=== PATIENT | female | born 1950 | race Caucasian/White ===

== ENCOUNTER → 2017-10-09 | Outpatient (CLI) | payer MEDICARE ==
--- NOTE | 2017-10-09 09:39 | BD ---
EXAMINATION TYPE: MG DEXA axial skeleton. DATE OF EXAM: 10/09/2017 COMPARISON: DEXA bone 01-25-2014. CLINICAL HISTORY: Height: 62.5 Weight: 160 FRAX RISK QUESTIONS: Alcohol (3 or more units per day): no Family History (Parent hip fracture): yes, mother Glucocorticoids (More than 3mos): no (Ex: prednisone, prednisolone, methylprednisolone, dexamethasone, and hydrocortisone). History of Fracture in Adulthood: left femur Secondary Osteoporosis: 1. Type 1 Diabetes: no 2. Hyperthyroidism: no 3. Menopause before 45: no 4. Malnutrition: no 5. Chronic liver disease: no Rheumatoid Arthritis: no Current Tobacco Use: no RISK FACTORS HISTORY OF: Hip Fracture (Left): femur When: about age 29 Surgery to Femur(left) yes When: about age 29 Family History of Osteoporosis: yes, mother Active: yes Diet low in dairy products/other sources of calcium: no Postmenopausal woman: yes Take estrogen and/or progesterone medications: yes..Provera for about one year Lost more than 2 inches in height since high school: states height was perhaps 64 & 1/2 inches at one time Frequent falls: no Poor Health: no Hyperparathyroidism: no Adrenal Insufficiency: no MEDICATIONS: Prednisone or other steroids: no Thyroid Medications: no Osteoporosis Medications: no EXAM MEASUREMENTS: Bone mineral densitometry was performed using the [employer] System. Bone mineral density as measured about the Lumbar spine is: ----- L1-L4(G/cm2): 1.203 T Score Values are as follows: ----- L2: -1.0 ----- L3: 0.9 ----- L4: 0.7 ----- L1-L4: 0.2 Bone mineral density has: Decreased -3.5% since study of: 01/25/2014 Bone mineral density about the R hip (g/cm2): 0.850 T Score values are as follows: -----R Neck: -1.4 -----R Total: -0.7 Bone mineral density has: Decreased -4.1% since study of: 01/25/2014 IMPRESSION: Osteopenia (T Score between -2.5 and -1 as noted by T score values at femoral neck level in right hip . There is slightly increased risk of fracture and the patient may be considered for treatment. Re-Sc reen 2-5 years. NOTE: T-SCORE=SD OF THE YOUNG ADULT MEAN.
--- NOTE | 2017-10-10 14:22 | MM ---
Reason for exam: screening (asymptomatic). Last mammogram was performed 3 years and 8 months ago. History: Patient is postmenopausal. Family history of breast cancer in maternal grandmother. Cyst aspiration of the right breast. Excisional biopsy of the right breast. Physical Findings: A clinical breast exam by your physician is recommended on an annual basis and results should be correlated with mammographic findings. MG 3D Screening Mammo W/Cad Bilateral CC and MLO view(s) were taken. Prior study comparison: January 25, 2014, bilateral digital screening mammo w/CAD. April 18, 2012, CAD bilateral diagnostic mammogram. The breast tissue is heterogeneously dense. This may lower the sensitivity of mammography. No significant changes when compared with prior studies. ASSESSMENT: Benign, BI-RAD 2 RECOMMENDATION: Routine screening mammogram of both breasts in 1 year.
== END | disposition home or self-care (01) ==
LOC: RADMAMWWP 07:34
PROVIDERS: ATTEND Obstetrics & Gynecology
DX: Z12.31 Encounter for screening mammogram for malignant neoplasm of breast (principal); M85.851 Other specified disorders of bone density and structure, right thigh; E78.4 Other hyperlipidemia
CPT/HCPCS: 80061; 82947; 84443; 77080; 77063; 36415; G0202

== ENCOUNTER → 2018-11-03 | Outpatient (CLI) | payer MEDICARE ==
--- NOTE | 2018-11-04 13:30 | MM ---
Reason for exam: screening (asymptomatic). Last mammogram was performed 1 year and 1 month ago. History: Patient is postmenopausal. Family history of breast cancer in maternal grandmother. Cyst aspiration of the right breast. Excisional biopsy of the right breast. Physical Findings: A clinical breast exam by your physician is recommended on an annual basis and results should be correlated with mammographic findings. MG 3D Screening Mammo W/Cad Bilateral CC and MLO view(s) were taken. Prior study comparison: October 09, 2017, bilateral MG 3d screening mammo w/cad. January 25, 2014, bilateral digital screening mammo w/CAD. The breast tissue is heterogeneously dense. This may lower the sensitivity of mammography. There are benign appearing round calcifications in the left breast. There is chronic nodularity in the left breast. There is no discrete abnormality. ASSESSMENT: Benign, BI-RAD 2 RECOMMENDATION: Routine screening mammogram of both breasts in 1 year.
== END | disposition home or self-care (01) ==
LOC: RADMAMWWP 13:49
PROVIDERS: ATTEND Family Medicine
DX: Z12.31 Encounter for screening mammogram for malignant neoplasm of breast (principal)
CPT/HCPCS: 77063; 77067

== ENCOUNTER → 2019-12-09 | Outpatient (CLI) | payer MEDICARE ==
--- NOTE | 2019-12-11 10:26 | MM ---
Reason for exam: screening (asymptomatic). Last mammogram was performed 1 year and 1 month ago. History: Patient is postmenopausal. Family history of breast cancer in maternal grandmother. Cyst aspiration of the right breast. Excisional biopsy of the right breast. Physical Findings: A clinical breast exam by your physician is recommended on an annual basis and results should be correlated with mammographic findings. MG 3D Screening Mammo W/Cad Bilateral CC and MLO view(s) were taken. Prior study comparison: November 03, 2018, bilateral MG 3d screening mammo w/cad. October 09, 2017, bilateral MG 3d screening mammo w/cad. The breast tissue is heterogeneously dense. This may lower the sensitivity of mammography. There is chronic nodularity bilaterally. No significant changes when compared with prior studies. ASSESSMENT: Benign, BI-RAD 2 RECOMMENDATION: Routine screening mammogram of both breasts in 1 year. Patient should continue monthly self breast exams. A negative report should not preclude additional follow up of suspicious palpable abnormalities.
== END | disposition home or self-care (01) ==
LOC: RADMAMWWP 10:59
PROVIDERS: ATTEND Obstetrics & Gynecology
DX: Z12.31 Encounter for screening mammogram for malignant neoplasm of breast (principal)
CPT/HCPCS: 77063; 77067

== ENCOUNTER 2019-12-24 15:43 | Emergency (ER) | payer MEDICARE ==
[2019-12-24 16:02] VITALS: TEMP 97
[2019-12-24] MEDS ORDERED: Acetaminophen-Codeine 300-30mg TAB PO STA (16:23)
--- NOTE | 2019-12-24 16:34 | ED ---
General Adult HPI - General Source: patient, RN notes reviewed, old records reviewed Mode of arrival: wheelchair Limitations: no limitations <Jerry Wilkinson - Last Filed: 12/24/19 19:10> <Donta Rowan - Last Filed: 12/25/19 18:23> - General Chief complaint: Fall Stated complaint: fall Time Seen by Provider: 12/24/19 16:18 - History of Present Illness Initial comments: 69-year-old female patient presents to ED for chief complaint of fall and right shoulder. Patient reports that she was in her basement, tripped over a case of water fell onto her right shoulder. Patient reports that she has right shoulder as well as right humerus pain. Denies any trauma to head or neck. Denies any use of blood thinners. Denies any loss of consciousness. Denies any other complaints. Systemic: Pt denies fatigue, fever/chills, rash. Pt denies weakness, night sweats, weight loss. Neuro: Pt denies headache, visual disturbances, syncope or pre-syncope. HEENT: Pt denies ocular discharge or irritation, otalgia, rhinorrhea, pharyngitis or notable lymphadenopathy. Cardiopulmonary: Pt denies chest pain, SOB, heart palpitations, dyspnea on exertion. Abdominal/GI: Pt denies abdominal pain, n/v/d. : Pt denies dysuria, burning w/ urination, frequency/urgency. Denies new onset urinary or bowel incontinence. MSK: Pt denies myalgia, loss of strength or function in extremities. Neuro: Pt denies new onset weakness, paresthesias. (Jerry Wilkinson) - Related Data Home Medications Medication Instructions Recorded Confirmed Medroxyprogesterone Acetate 10 mg PO DAILY 06/01/16 06/05/16 [Provera] Previous Rx's Medication Instructions Recorded Acetaminophen-Codeine 300-30mg 1 - 2 tab PO Q4H PRN #30 tablet 06/05/16 [Tylenol #3] Ibuprofen [Motrin] 600 mg PO Q6HR PRN #40 tab 06/05/16 Allergies Allergy/AdvReac Type Severity Reaction Status Date / Time No Known Allergies Allergy Verified 12/24/19 16:00 Review of Systems ROS Other: All systems not noted in ROS Statement are negative. <Jerry Wilkinson - Last Filed: 12/24/19 19:10> ROS Other: All systems not noted in ROS Statement are negative. <Donta Rowan - Last Filed: 12/25/19 18:23> ROS Statement: Those systems with pertinent positive or pertinent negative responses have been documented in the HPI. Past Medical History Past Medical History: No Reported History History of Any Multi-Drug Resistant Organisms: None Reported Past Surgical History: Orthopedic Surgery, Tonsillectomy Past Psychological History: No Psychological Hx Reported Smoking Status: Never smoker Past Alcohol Use History: None Reported Past Drug Use History: None Reported <Jerry Wilkinson - Last Filed: 12/24/19 19:10> General Exam Limitations: no limitations <Jerry Wilkinson - Last Filed: 12/24/19 19:10> - General Exam Comments Initial Comments: Constitutional: NAD, AOX3, Pt has pleasant affect. HEENT: NC/AT, trachea midline, neck supple, no lymphadenopathy. Posterior pharynx non erythematous, without exudates. External ears appear normal, without discharge. Mucous membranes moist. Eyes PERRLA, EOM intact. There is no scleral icterus. No pallor noted. Cardiopulmonary: RRR, no murmurs, rubs or gallops, no JVD noted. Lungs CTAB in anterior and posterior farrar. No peripheral edema. Abdominal exam: Abdomen soft and non-distended. Abdomen non-tender to palpation in all 4 quadrants. Bowel sounds active in LLQ. No hepatosplenomegaly. No ecchymosis Neuro: CN II-XII grossly intact. No nuchal rigidity. No raccon eyes, no momin sign, no hemotympanum. No cervical spinal tenderness. MSK: Right anterior shoulder tenderness to palpation, consistent with anterior dislocation. Mild amount of right humeral tenderness as well. No wrist, hand, forearm tenderness bilaterally. No scaphoid tenderness. No posterior calf tenderness bilaterally, homans sign negative bilaterally. Posterior tibialis and radial pulse +2 bilaterally. Sensation intact in upper and lower extremities. (Jerry Wilkinson) Course Vital Signs 12/24/19 12/24/19 12/24/19 16:00 18:30 18:35 Temperature 97.0 F L Pulse Rate 65 77 98 Respiratory 18 25 H 22 Rate Blood Pressure 166/80 137/70 163/98 O2 Sat by Pulse 98 100 99 Oximetry 12/24/19 12/24/19 12/24/19 18:40 18:45 18:50 Temperature Pulse Rate 90 89 82 Respiratory 13 18 18 Rate Blood Pressure 131/67 126/81 O2 Sat by Pulse 100 98 98 Oximetry 12/24/19 12/24/19 12/24/19 18:55 19:00 19:05 Temperature Pulse Rate 78 79 75 Respiratory 18 18 18 Rate Blood Pressure 135/70 121/73 O2 Sat by Pulse 97 80 L 99 Oximetry 12/24/19 19:20 Temperature Pulse Rate 74 Respiratory 20 Rate Blood Pressure 134/67 O2 Sat by Pulse 98 Oximetry Procedures - Orthopedic Joint Reduction Joint #1 Consent Obtained: verbal consent Side: right Joint Reduction Location: shoulder Analgesia: procedural sedation Shoulder Technique Used (if applicable): traction/counter-traction, external rotation Post Reduction X-Ray Obtained: Yes Post Reduction X-Ray Results: reduced Splint Applied: Yes Patient Tolerated Procedure: well - Procedural Sedation Procedural Sedation Start Time: 18:22 Procedural Sedation Stop Time: 19:00 Indications: fracture/dislocation reduction ASA Class: I Mallampati Airway Score: 1 Preparation: fish bait picker applied, pulse oximeter, capnometry used IV Propofol Dose (mgs): 180 Complications: none Patient Tolerated Procedure: well <Donta Rowan - Last Filed: 12/25/19 18:23> Medical Decision Making <Jerry Wilkinson - Last Filed: 12/24/19 19:10> - Medical Decision Making 69-year-old female patient presents to ED for chief complaint of fall and right shoulder. Patient reports that she was in her basement, tripped over a case of water fell onto her right shoulder. Patient reports that she has right shoulder as well as right humerus pain. Denies any trauma to head or neck. Denies any use of blood thinners. Denies any loss of consciousness. Denies any other complaints. His vital signs stable, afebrile. Physical exam displayed right anterior shoulder tenderness to palpation. When films did display a right anterior shoulder dislocation, no fracture. Patient consented to procedural sedation. Shoulder dislocation was reduced. Patient placed in sling. Neurovascular intact. Patient aox3 at time of discharge. Pt will be discharged with outpatient orthopedic follow-up. Case discussed and sedation performed with Dr. Rowan. (Jerry Wilkinson) Disposition Is patient prescribed a controlled substance at d/c from ED?: No <Jerry Wilkinson - Last Filed: 12/24/19 19:10> <Donta Rowan - Last Filed: 12/25/19 18:23> Clinical Impression: Anterior shoulder dislocation Disposition: HOME SELF-CARE Condition: Stable Instructions (If sedation given, give patient instructions): Shoulder Dislocation (ED), Moderate Sedation (ED) Additional Instructions: Continue to wear shoulder sling. Follow up with orthopedic consult tomorrow. Return to ER if condition worsens in any way. Perform gentle range of motion of shoulder 3 times per day. Referrals: Mario Lindsay MD [Primary Care Provider] - 1-2 days Jean-Paul Gurrola DO [Medical Doctor] - 1-2 days
--- NOTE | 2019-12-24 16:56 | XR ---
EXAMINATION TYPE: XR shoulder complete RT, XR humerus RT DATE OF EXAM: 12/24/2019 CLINICAL HISTORY: Fall injury with shoulder and humeral pain. TECHNIQUE: Three views of the right shoulder are obtained. 2 views right humerus. COMPARISON: None. FINDINGS: Right humerus shows no acute fracture mid to distal aspect. Right elbow joint suboptimally evaluated but felt within normal limits. Acromioclavicular joint shows moderate to severe narrowing with mild spurring no acute fracture is se en. There is abnormal inferior medial positioning of the humeral head relative to glenoid cavity. Vis ualized ribs are intact. IMPRESSION: There is anterior shoulder dislocation. No acute fracture right humerus or shoulder note d.
[2019-12-24] MEDS ORDERED: MORPHINE SULFATE 4 MG/ML SYRINGE IV STA ×2 (17:05→17:35)
--- NOTE | 2019-12-24 17:08 | XR ---
EXAMINATION TYPE: XR chest 1V portable DATE OF EXAM: 12/24/2019 COMPARISON: NONE HISTORY: Fall injury with chest pain. TECHNIQUE: Single AP portable frontal upright view of the chest is obtained. FINDINGS: There is chronic parenchymal change without suspicious new focal air space opacity, pleura l effusion, or pneumothorax seen. The cardiac silhouette size is upper limits of normal. Right anter ior shoulder dislocation noted. IMPRESSION: Chronic changes without acute pulmonary process.
[2019-12-24] MEDS ORDERED: PROPOFOL 10 MG/ML 20 ML VIAL IV ONE (17:53)
--- NOTE | 2019-12-24 18:58 | XR ---
PROCEDURE: XR shoulder limited RT - 1V DATE AND TIME: 12/24/2019 6:51 PM CLINICAL INDICATION: PHH; POST REDUCTION OF RIGHT SHOULDER TECHNIQUE: Postreduction AP view COMPARISON: 12/24/2019 at 4:44 PM FINDINGS: There is interval reduction at the glenohumeral joint. The glenohumeral joint now appears c ongruent. No evidence of fracture. IMPRESSION: Postreduction AP view.
[2019-12-24] MEDS ORDERED: ACET/COD 300 MG/30 MG STARTER PACK 6 TAB BTL PO STA (19:13)
[2019-12-24 19:33] VITALS: BP 134/67; PULSE 74; RESP 20
== END 2019-12-24 19:43 | disposition home or self-care (01) ==
LOC: EC 15:43
DX: S43.084A Other dislocation of right shoulder joint, initial encounter (principal); Z79.3 Long term (current) use of hormonal contraceptives; W01.0XXA Fall on same level from slipping, tripping and stumbling without subsequent striking against object, initial encounter; Y92.009 Unspecified place in unspecified non-institutional (private) residence as the place of occurrence of the external cause
CPT/HCPCS: 73020; 73030; 73060; 71045; 99284; 96374; 96376; 23650; 99152; 99153 ×2; J2270; J2704

== ENCOUNTER → 2023-08-09 | Outpatient (CLI) | payer MEDICARE ==
--- NOTE | 2023-08-12 09:42 | MM ---
Reason for Exam: Screening (asymptomatic). Last mammogram was performed 3 year(s) and 8 month(s) ago. Patient History: Menarche at age 14. First Full-Term at age 27. Postmenopausal. Cyst Aspiration on the Right side. Excisional Biopsy on the Right side. Maternal grandmother had breast cancer. Daughter had breast cancer, age 46. Risk Values: Radha 5 year model risk: 4.0%. NCI Lifetime model risk: 10.9%. Prior Study Comparison: 10/09/2017 Bilateral Screening Mammogram, [facility]. 11/03/2018 Bilateral Screening Mammogram, [facility]. 12/09/2019 Bilateral Screening Mammogram, [facility]. Tissue Density: The breast tissue is heterogeneously dense. This may lower the sensitivity of mammography. Findings: Analyzed By CAD. Partially imaged masses far upper outer quadrant right breast approximately 4 cm from the nipple. Additional views and ultrasound recommended. Benign calcifications seen bilaterally. Overall Assessment: Incomplete: need additional imaging evaluation, BI-RAD 0 Management: Diagnostic Mammogram of the right breast. . Patient should continue monthly self-breast exams. A clinical breast exam by your physician is recommended on an annual basis. This exam should not preclude additional follow-up of suspicious palpable abnormalities. Note on Radha scores and lifetime risk: 1. A Radha score greater than 3% is considered moderate risk. If this is the case, consider specialist referral to assess eligibility for a risk reducing agent. 2. If overall lifetime risk for the development of breast cancer is 20% or higher, the patient may qualify for future screening with alternating mammogram and breast MRI. Electronically signed and approved by: Vaughn Moss M.D. Radiologis
--- NOTE | 2023-08-12 14:19 | BD ---
EXAMINATION TYPE: Axial Bone Density DATE OF EXAM: 08/09/2023 CLINICAL HISTORY: 73 years old Female. ICD-10 CODE: M85.851 OSTEOPENIA OF RIGHT HIP Height: 61.5 Weight: 166.3 FRAX RISK QUESTIONS: Alcohol (3 or more units per day): no Family History (Parent hip fracture): mother Glucocorticoids (More than 3mos): no History of Fracture in Adulthood: yes Secondary Osteoporosis: 1. Type 1 Diabetes: no 2. Hyperthyroidism: no 3. Menopause before 45: no 4. Malnutrition: no 5. Chronic liver disease: no Rheumatoid Arthritis: no Current Tobacco Use: no RISK FACTORS HISTORY OF: Hip Fracture (Right/Left): no Spine Fracture: no History of Wrist Fracture: no Surgery to Spine/Hip(right/left)/Wrist (right/left): Lt Femur Fx Repair, 1978 Family History of Osteoporosis: Mother Active: yes Diet low in dairy products/other sources of calcium: yes Postmenopausal woman: yes Take estrogen and/or progesterone medications: no Lost more than 2 inches in height since high school: yes Frequent falls: no Poor Health: no Hyperparathyroidism: no Adrenal Insufficiency: no MEDICATIONS: Prednisone or other steroids: no Thyroid Medications: no Osteoporosis Medications: Additional Medications: Calcium, Cholesterol Meds, Additional History: EXAM MEASUREMENTS: Bone mineral densitometry was performed using the [employer] System. Bone mineral density as measured about the Lumbar spine is: ----- L1-L4(G/cm2): 1.239 T Score Values are as follows: ----- L1: -0.2 ----- L2: -0.4 ----- L3: 1.0 ----- L4: 0.9 ----- L1-L4: 0.5 Z Score Values are as follows: ----- L1: 1.2 ----- L2: 1.0 ----- L3: 2.4 ----- L4: 2.3 ----- L1-L4: 1.8 Bone mineral density has: increased 3.0 % since study of: 10/09/2017 Bone mineral density about the R hip (g/cm2): 0.933 T Score values are as follows: -----R Neck: -1.5 -----R Total: -0.6 Z Score values are as follows: -----R Neck: 0.0 -----R Total: 0.7 Bone mineral density has: increased 1.0 % since study of: 10/09/2017 FRAX%s: The graph provided illustrates a 24.0% chance for a major osteoporotic fx and a 6.2% chance f or the hips probability for fx in 10 years time. IMPRESSION: Osteopenia (T Score between -2.5 and -1). There is slightly increased risk of fracture and the patient may be considered for treatment. Re-Screen 2-5 years. NOTE: T-SCORE=SD OF THE YOUNG ADULT MEAN.
== END | disposition home or self-care (01) ==
LOC: RADBDWWP 16:03
PROVIDERS: ATTEND Internal Medicine
DX: Z12.31 Encounter for screening mammogram for malignant neoplasm of breast (principal); M85.851 Other specified disorders of bone density and structure, right thigh; Z78.0 Asymptomatic menopausal state
CPT/HCPCS: 77063; 77067; 77080

== ENCOUNTER → 2023-08-13 | Outpatient (CLI) | payer MEDICARE ==
--- NOTE | 2023-08-13 12:07 | CA ---
Exercise Nuclear Stress Test Report Name: Yolande Mendez Exam Date: 08/13/2023 10:24 Exam Location: [facility] Ht (in): 62 Wt (lb): 165 BSA: 1.76 Ordering Phys: Zaid Brown MD Referring Phys: Brown Technologist: Venkata Barker Age: 73 Gender: F : 1950 Procedure CPT: Indications: I71.21 ICD-10 Codes: Patient History: Medications: ROVUSTATIN,,,,, Meds past 24 hrs: Pretest Chest Pain: STRESS TEST Protocol Exercise Duration (min:sec): 06:[address] Depressions (mm): Angina Score: Pastor Score: Resting HR (bpm): 73 Peak HR (bpm): 132 Resting BP (mmHg): 155 / 88 Peak BP (mmHg): 156 / 72 MPHR: 149 Target HR: 127 % MPHR: 89 METS: 7.1 Total Dose: Peak Dose: Atropine: Double Product: BP Response: Stress Termination: TARGET HR REACHED/MAX EXERTION Stress Symptoms: NO SYMPTOMS Stress Summary: ECG ANALYSIS Resting ECG: Stress ECG: CONCLUSIONS Patient underwent Cardiolite exercise stress with a Pradeep protocol treadmill stress test. Patient exercised into Stage 2 for a total of 6 minutes and 30 seconds reaching a total of 7.1 METS. Patient's maximum heart rate was 132 which represented 88% age-predicted maximum heart rate. Stress EKG findings: At baseline patient's EKG showed normal sinus rhythm, normal axis, no significant ST or T wave abnormalities. At peak exercise, EKG showed no significance change from baseline with occasional PVCs. Conclusions: 1. Normal EKG response to exercise without evidence of inducible ischemia. 2 . Fair exercise capacity. 3. Nuclear portion to be reported separately Dr. Phillip Alanis DO (Electronically Signed) Final Date: 13 August 2023 12:06
--- NOTE | 2023-08-13 12:16 | CA ---
Transthoracic Echo Report Name: Yolande Mendez Age: 73 Gender: F : 1950 Exam Date: 08/13/2023 08:30 Exam Location: [facility] Ht (in): 62 Wt (lb): 165 Ordering Physician: Zaid Brown MD Attending/Referring Phys: Thermoforming Machine Operator Rosalba Velasco RDCS Procedure CPT: Indications: I71.21 Cardiac Hx: Technical Quality: Good Contrast 1: Total Dose (mL): Contrast 2: Total Dose (mL): MEASUREMENTS (Male / Female) Normal Values 2D ECHO LV Diastolic Diameter PLAX 4.1 cm 4.2 - 5.9 / 3.9 - 5.3 cm LV Systolic Diameter PLAX 2.8 cm IVS Diastolic Thickness 1.3 cm 0.6 - 1.0 / 0.6 - 0.9 cm LVPW Diastolic Thickness 1.3 cm 0.6 - 1.0 / 0.6 - 0.9 cm LV Relative Wall Thickness 0.6 RV Internal Dim ED PLAX 3.5 cm LA Systolic Diameter LX 3.9 cm 3.0 - 4.0 / 2.7 - 3.8 cm LV Diastolic Volume MOD 4C 87.5 cm??? LV Systolic Volume MOD 4C 38.1 cm??? LV Ejection Fraction MOD 4C 56.5 % LV Cardiac Index MOD 4C 1695.1 cm???/min???m??? LV Diastolic Length 4C 7.0 cm LV Systolic Length 4C 5.5 cm LV Diastolic Volume MOD 2C 86.3 cm??? LV Systolic Volume MOD 2C 34.2 cm??? LV Ejection Fraction MOD 2C 60.4 % LV Cardiac Index MOD 2C 1788.2 cm???/min???m??? LV Diastolic Length 2C 7.0 cm LV Systolic Length 2C 5.5 cm LA Volume 48.5 cm??? 18 - 58 / 22 - 52 cm??? M-MODE Aortic Root Diameter MM 3.2 cm MV E Point Septal Separation 0.3 cm AV Cusp Separation MM 2.1 cm DOPPLER AV Peak Velocity 124.8 cm/s AV Peak Gradient 6.2 mmHg MV Area PHT 3.5 cm??? Mitral E Point Velocity 73.9 cm/s Mitral A Point Velocity 83.1 cm/s Mitral E to A Ratio 0.9 MV Deceleration Time 214.0 ms MV E' Velocity 4.3 cm/s Mitral E to MV E' Ratio 17.3 TR Peak Velocity 203.0 cm/s TR Peak Gradient 16.5 mmHg Right Ventricular Systolic Press 20.5 mmHg FINDINGS Left Ventricle Left ventricular ejection fraction is estimated at 55-60 %. Left ventricular cavity size normal. Moderately increased septal wall thickness. Moderately increased posterior wall thickness. Right Ventricle Mild right ventricular dilatation. Right ventricular systolic pressure within normal limits. Right Atrium Normal right atrial size. Left Atrium Normal left atrial size. Mitral Valve Structurally normal mitral valve. Trace mitral regurgitation. Aortic Valve Trileaflet aortic valve. No aortic valve stenosis or regurgitation. Tricuspid Valve Structurally normal tricuspid valve. Trace to mild tricuspid regurgitation. Pulmonic Valve Structurally normal pulmonic valve. Trace pulmonic regurgitation. Pericardium No pericardial effusion. Aorta Normal size aortic root and proximal ascending aorta. CONCLUSIONS Left ventricular ejection fraction 55-60% Moderately increased left ventricular wall thickness Trace mitral regurgitation Trace to mild tricuspid regurgitation No pericardial effusion Previewed by: Dr. Phillip Alanis DO (Electronically Signed) Final Date: 13 August 2023 12:15
--- NOTE | 2023-08-16 08:22 | NM ---
EXAMINATION TYPE: NM stress cardiolite complete DATE OF EXAM: 08/13/2023 COMPARISON: NONE CLINICAL INDICATION: Female, 73 years old with history of I71.21; TECHNIQUE: After the intravenous administration of 10.1 mCi Tc 99m Sestamibi - Rest images obtained 55 minutes post injection. The patient exercised using a DAVIDA protocol and 1 minute prior to peak exercise was injected with 26.1 mCi Tc 99m Sestamibi - Stress images obtained 30 minutes post injecti on. FINDINGS: Targeted heart rate was achieved during performance of the study. Review of stress and rest SPECT mohsen ges demonstrates no distinct perfusion abnormality. Gated analysis shows normal wall motion with an estimated left ventricular ejection fraction of 53 %. IMPRESSION: No scintigraphic evidence for reversible ischemia
== END | disposition home or self-care (01) ==
LOC: RADECHMAIN 08:08
PROVIDERS: ATTEND Internal Medicine
DX: I71.21 Aneurysm of the ascending aorta, without rupture (principal); I08.1 Rheumatic disorders of both mitral and tricuspid valves; I25.10 Atherosclerotic heart disease of native coronary artery without angina pectoris
CPT/HCPCS: 93017; 93306; 78452; A9500

== ENCOUNTER → 2023-08-14 | Outpatient (CLI) | payer MEDICARE ==
--- NOTE | 2023-08-14 19:35 | MM ---
Reason for Exam: Additional evaluation requested from abnormal screening. Last screening mammogram was performed less than 1 month ago. Patient History: Menarche at age 14. First Full-Term at age 27. Postmenopausal. Cyst Aspiration on the Right side. Excisional Biopsy on the Right side. Maternal grandmother had breast cancer. Daughter had breast cancer, age 46. Risk Values: Radha 5 year model risk: 4.0%. NCI Lifetime model risk: 10.9%. Prior Study Comparison: 04/29/2009 Bilateral Screening Mammogram, [facility]. 05/10/2009 Bilateral Diagnostic Mammogram, [facility]. 05/10/2009 Bilateral Diagnostic Ultrasound, [facility]. 09/12/2009 Left Diagnostic Ultrasound, [facility]. 08/29/2010 Bilateral Diagnostic Mammogram, [facility]. 08/29/2010 Bilateral Diagnostic Ultrasound, [facility]. 04/18/2012 Bilateral Diagnostic Mammogram, [facility]. 01/25/2014 Bilateral Screening Mammogram, [facility]. 10/09/2017 Bilateral Screening Mammogram, [facility]. 11/03/2018 Bilateral Screening Mammogram, [facility]. 12/09/2019 Bilateral Screening Mammogram, [facility]. 08/09/2023 Bilateral MG 3D screening mammo w/cad, [facility]. Tissue Density: Right: The breast tissue is heterogeneously dense. This may lower the sensitivity of mammography. Findings: Analyzed By CAD. Pattern appears stable. There is persistent oval density in the upper outer right breast measuring 1.1 cm located 9 cm from the nipple. Additional workup with ultrasound is recommended. No suspicious groups of microcalcifications, spiculated or lobular masses, architectural distortion or other secondary signs of malignancy are mammographically apparent. Overall Assessment: Incomplete: need additional imaging evaluation, BI-RAD 0 Management: Diagnostic Breast Ultrasound of the right breast. A negative mammogram report should not preclude additional follow up of suspicious palpable abnormalities. Patient should continue monthly self breast exam. A clinical breast exam by your physician is recommended on an annual basis and results should be correlated with mammographic findings. Electronically signed and approved by: Nathan Dash D.O. Radiologis
--- NOTE | 2023-08-14 19:36 | USB ---
Reason for Exam: Additional evaluation requested from abnormal screening. Patient History: Menarche at age 14. First Full-Term at age 27. Postmenopausal. Cyst Aspiration on the Right side. Excisional Biopsy on the Right side. Maternal grandmother had breast cancer. Daughter had breast cancer, age 46. Risk Values: Radha 5 year model risk: 4.0%. NCI Lifetime model risk: 10.9%. Technique: Method: Targeted. Prior Study Comparison: 11/03/2018 Bilateral Screening Mammogram, [facility]. 12/09/2019 Bilateral Screening Mammogram, [facility]. 08/09/2023 Bilateral MG 3D screening mammo w/cad, [facility]. Findings: The lateral section of the breast of the right breast and the axilla of the right breast were scanned. There is a cyst in the upper right breast 10:00 position 9 cm nipple measuring 1.5 x 1.5 x 0.7 cm. This is a simple cyst with good through transmission and posterior wall enhancement. There is an additional 0.5 x 0.5 x 0.5 cm cyst in the lower outer right breast. These areas correspond to mammographic findings.. Overall Assessment: Benign, BI-RAD 2 Management: Screening Mammogram of both breasts in 1 year. A clinical breast exam by your physician is recommended on an annual basis and results should be correlated with mammographic findings. This exam should not preclude additional follow-up of suspicious palpable abnormalities. Results were given to the patient verbally at the time of exam. Electronically signed and approved by: Nathan Dash D.O. Radiologis
== END | disposition home or self-care (01) ==
LOC: RADMAMWWP 13:43
PROVIDERS: ATTEND Internal Medicine
DX: R92.8 Other abnormal and inconclusive findings on diagnostic imaging of breast (principal); N60.01 Solitary cyst of right breast; Z78.0 Asymptomatic menopausal state; Z80.3 Family history of malignant neoplasm of breast
CPT/HCPCS: 77065; 76642; G0279; 77061

== ENCOUNTER → 2023-09-27 | Outpatient (CLI) | payer MEDICARE ==
[2023-09-28 02:00] LABS: Basophils # (A) 0.04 X 10*3/uL (0.00-0.10); Basophils % (A) 0.8 %; Eosinophils # (A) 0.14 X 10*3/uL (0.04-0.35); Eosinophils % (A) 2.7 %; HCT 45.4 % (37.2-46.3); HGB 14.5 d/dL (12.0-15.0); Lymphocytes # (A) 1.73 X 10*3/uL (0.90-5.00); Lymphocytes % (A) 33.7 %; MCH 29.5 pg (27.0-32.0); MCHC 31.9 d/dL (32.0-37.0); MCV 92.5 FL (80.0-97.0); Mean Platelet Volume 11.5 FL (9.5-12.2); Monocytes # (A) 0.38 X 10*3/uL (0.20-1.00); Monocytes % (A) 7.4 %; NRBC Per 100 WBC 0 X 10*3/uL (0.00-0.01); Neutrophils # (A) 2.84 X 10*3/uL (1.80-7.70); Neutrophils % (A) 55.2 %; Platelet Count 234 X 10*3/uL (140-440); RBC 4.91 X 10*6/uL (4.10-5.20); RDW 13.3 % (11.5-14.5); WBC 5.14 X 10*3/uL (4.50-10.00)
== END | disposition home or self-care (01) ==
LOC: LABPAT 14:46
PROVIDERS: ATTEND Obstetrics & Gynecology
DX: Z01.812 Encounter for preprocedural laboratory examination (principal)
CPT/HCPCS: 85025

== ENCOUNTER 2023-10-07 06:07 | Day surgery (SDC) | payer MEDICARE ==
--- NOTE | 2023-10-03 08:24 | P.HPOB ---
History of Present Illness H&P Date: 10/03/23 Chief Complaint: Postmenopausal bleeding. This patient is a pleasant 73 yr female who presented to my office with complaints of postmenopausal bleeding that occurred on September 06. She had not been in the office in 4 years and does have a past history (2014) of PMB t hat revealed benign polyp with hyperplasia. She took Provera and repeat sampling was normal. Most recent ultrasound showed the endometrium to be 7mm with complex cystic areas. She now presents for hysteroscopy/D&C for further evaluation. Review of Systems Constitutional: Reports as per HPI Genitourinary: Reports abnormal vaginal bleeding Menstruation: Reports postmenopausal Past Medical History Past Medical History: No Reported History History of Any Multi-Drug Resistant Organisms: None Reported Past Surgical History: Orthopedic Surgery, Tonsillectomy Past Anesthesia/Blood Transfusion Reactions: Previous Problems w/ Anesthesia (Patient has a history of difficult intubation with her last surgery.) Past Psychological History: No Psychological Hx Reported Smoking Status: Never smoker Past Alcohol Use History: None Reported Past Drug Use History: None Reported Medications and Allergies Home Medications Medication Instructions Recorded Confirmed Type Rosuvastatin [Crestor] 10/03/23 History Allergies Allergy/AdvReac Type Severity Reaction Status Date / Time No Known Allergies Allergy Verified 12/24/19 16:00 Exam - OBG Physical Exam Abdomen: bowel sounds normal, no diffuse tenderness, no bruit present, no guarding noted, no hepatomegaly, no splenomegaly, no mass Vulva: both: normal Vagina: normal moisture Cervix: no lesion, no discharge Uterus: normal size Adnexa: both: normal Results Ultrasound as above Assessment and Plan Assessment: This is a pleasant 73 yr female with postmenopausal bleeding and abnormal endometrial ultrasound. Plan is hysteroscopy and D&C. I have discussed this surgery and risks with her including risks: infection, bleeding, possible uterine perforation. Patient also has a history of difficult intubation and anesthesia aware. (1) Abnormal ultrasound of endometrium Status: Acute Code(s): R93.5 - ABN FINDINGS ON DX IMAGING OF ABD REGIONS, INC RETROPERITON SNOMED Code(s): 87695107453809654 (2) Post-menopausal bleeding Status: Acute Code(s): N95.0 - POSTMENOPAUSAL BLEEDING SNOMED Code(s): 30629662
[~2023-10-07 06:07] MED LIST: Pre Op ABX Message 1 EACH MISC MISCELLANE ONE
[2023-10-07] MEDS ORDERED: HYDROmorphone 0.5 MG/0.5 ML SYRINGE IVP PRN (06:48)
[2023-10-07] MEDS ORDERED: LACTATED RINGERS 1,000 ML IV SCH (06:48)
[2023-10-07] MEDS ORDERED: DEXAMETHASONE SOD PHOSPHATE 4 MG/ML 1 ML VIAL IV ONE (06:48)
[2023-10-07] MEDS ORDERED: LIDOCAINE 1% (10MG/ML) FOR IV START INTRADERMA PRN (06:48)
[2023-10-07] MEDS ORDERED: ONDANSETRON 4 MG/2 ML VIAL IVP ONE (06:48)
[2023-10-07] MEDS ORDERED: droPERidol 5 MG/2 ML VIAL IVP ONE (06:48)
[2023-10-07] MEDS ORDERED: fentaNYL (PF) 50 MCG/ML 2 ML AMP ONE (07:14)
[2023-10-07] MEDS ORDERED: LIDOCAINE 1% INJ 10MG/ML (20 ML MDV) ONE (07:14)
[2023-10-07] MEDS ORDERED: KETOROLAC 30 MG/ML 1 ML VIAL ONE (07:14)
[2023-10-07] MEDS ORDERED: MIDAZOLAM 2 MG/2 ML VIAL ONE (07:14)
[2023-10-07] MEDS ORDERED: PROPOFOL 10 MG/ML 20 ML VIAL IV ONE (07:14)
--- NOTE | 2023-10-07 08:01 | P.OP ---
Date of Procedure: 10/07/23 Preoperative Diagnosis: Post menopausal bleeding, abnormal endometrial ultrasound Postoperative Diagnosis: Same, endometrial polyp Procedure(s) Performed: #1:: Hysteroscopy. #2: Dilation and curettage. 3: Polypectomy Anesthesia: MAC Surgeon: Aquilino Caldwell Estimated Blood Loss (ml): 10 Urine output (ml): 20 Pathology: other (Uterine curettings, polyp) Condition: stable Disposition: PACU Indications for Procedure: Please see dictated H&P for intimate details of this patient's admission. Brief summary is a pleasant 73-year-old 1 para 1 female who presented to pr with complaints of postmenopausal bleeding. Patient had abnormal endometrial ultrasound presents for hysteroscopy D&C for further evaluation. Patient understands the surgery and risks and risks of infection, bleeding, possible uterine perforation. All the patient's questions are answered and a written consent is obtained. Operative Findings: This patient is a large 3 cm appearing benign endometrial polyp Description of Procedure: This patient is taken to the operating room where she sat in supine position. She subsequently undergoes general anesthesia without incident. With an adequate level of anesthesia she's placed in dorsal lithotomy position. She is a vaginal perineal prep and drape. Bladder is drained for 20 mL of clear urine. Examination under anesthesia shows a mid position uterus is small. Weighted speculum placed in posterior vagina. Anterior lip the cervix Allis clamp. Uterus is then sounded to 7 cm. Gentle dilation is then done to allow the hysteroscope easily uterine cavity. Using saline solution, hysteroscopy is performed and a large endometrial polyp was noted. The rest the cavity appears atrophic without concerning lesions. The hysteroscope was then removed. Cervix is dilated more to allow the polyp forceps easily and uterine cavity. Using the polyp forceps are removed the polyp easily. With this done a large curette is then used to do a four-quadrant thorough curettage per scant amount of tissue. Consistent with uterine atrophy. This completed there is minimal bleeding procedure is ended. The weighted speculum and Allis clamp was removed. All counts are correct 3. There are no complications. Patient is awakened from anesthesia and taken recovery room satisfactory condition
[2023-10-07 08:11] VITALS: TEMP 97.2
[2023-10-07 09:00] VITALS: BP 114/71; PULSE 69; RESP 18
== END 2023-10-07 09:04 | disposition home or self-care (01) ==
LOC: OR 06:07
PROVIDERS: ATTEND Obstetrics & Gynecology
DX: N84.0 Polyp of corpus uteri (principal); N95.0 Postmenopausal bleeding; E78.5 Hyperlipidemia, unspecified; Z98.890 Other specified postprocedural states; Z79.899 Other long term (current) drug therapy
CPT/HCPCS: 88305; 58558; J2250; J1100; J2405; J2001; J3010; J1885; J2704

== ENCOUNTER → 2024-07-07 | Outpatient (CLI) | payer MEDICARE | END | disposition home or self-care (01) | LOC: LABPRL 16:22 | PROVIDERS: ATTEND Internal Medicine | CPT/HCPCS: 80053; 80061; 82306; 83036; 83735; 84443; 84550; 85025 ==

== ENCOUNTER → 2024-08-17 | Outpatient (CLI) | payer MEDICARE ==
--- NOTE | 2024-08-24 11:33 | MM ---
Reason for Exam: Screening (asymptomatic). Last screening mammogram was performed 12 month(s) ago. Patient History: Menarche at age 14. First Full-Term at age 27. Postmenopausal. Cyst Aspiration on the Right side. Excisional Biopsy on the Right side. Maternal grandmother had breast cancer. Daughter had breast cancer, age 46. Risk Values: Radha 5 year model risk: 4.1%. NCI Lifetime model risk: 10.4%. Prior Study Comparison: 10/09/2017 Bilateral Screening Mammogram, [facility]. 11/03/2018 Bilateral Screening Mammogram, [facility]. 12/09/2019 Bilateral Screening Mammogram, [facility]. 08/09/2023 Bilateral MG 3D screening mammo w/cad, [facility]. 08/14/2023 Right MG 3D work up w/cad RT, [facility]. Tissue Density: The breasts are heterogeneously dense, which may obscure small masses. Findings: Analyzed By CAD. Right breast: There is no suspicious group of microcalcifications or new suspicious mass. Stable posterior right breast mass compared to 08/09/2023 measuring 15 mm with an adjacent 10 mm possible lymph node. Left breast: There is no suspicious group of microcalcifications or new suspicious mass. Overall Assessment: Benign, BI-RAD 2 Management: Screening Mammogram of both breasts in [address] [facility] will attempt to contact patient to return for supplemental views and ultrasound if indicated. Patient should continue monthly self-breast exams. A clinical breast exam by your physician is recommended on an annual basis. This exam should not preclude additional follow-up of suspicious palpable abnormalities. Note on Radha scores and lifetime risk: 1. A Radha score greater than 3% is considered moderate risk. If this is the case, consider specialist referral to assess eligibility for a risk reducing agent. 2. If overall lifetime risk for the development of breast cancer is 20% or higher, the patient may qualify for future screening with alternating mammogram and breast MRI. [facility], , 08/24/2024 11:30 AM. Electronically signed and approved by: Tank Nichols DO
== END | disposition home or self-care (01) ==
LOC: RADMAMWWP 14:07
PROVIDERS: ATTEND Internal Medicine
DX: Z12.31 Encounter for screening mammogram for malignant neoplasm of breast
CPT/HCPCS: 77063; 77067